=== PATIENT | male | born 1990 | race Caucasian/White ===

== ENCOUNTER 2017-02-15 16:00 | Emergency (ER) | payer MEDICAID, OTHER ==
[~2017-02-15] VITALS: Ht 175.3 cm; Wt 104.4 kg
[~2017-02-15 16:00] MED LIST: MOTRIN
[2017-02-15 16:50] VITALS: BP 147/89
--- NOTE | 2017-02-15 17:40 | NUR ---
AMBULATED TO ER BED 5
--- NOTE | 2017-02-15 17:43 | NUR ---
Patient being evaluated by physician at bedside.
--- NOTE | 2017-02-15 17:44 | NUR ---
26/m bib self c/o LOWER BACK PAIN TODAY. PAIN TO BACK FROM LEFT LOWER RADIATING ACROSS LOWER BACK. DENIES INCONTINENCE. AMBULATES WITH SLOW GUARDED GAIT. HX CHILDHOOD ASTHMA. NO S/S OF TRAUMA TO BACK.
[2017-02-15] MEDS ORDERED: KETOROLAC 60 MG/2 ML VIAL IM ONE (17:45)
[2017-02-15 18:14] VITALS: BP 140/88
== END 2017-02-15 18:14 | disposition home or self-care (01) ==
LOC: MED 16:00
DX: S33.5XXA Sprain of ligaments of lumbar spine, initial encounter (principal); R03.0 Elevated blood-pressure reading, without diagnosis of hypertension; J45.909 Unspecified asthma, uncomplicated; X58.XXXA Exposure to other specified factors, initial encounter; Y93.I9 Activity, other involving external motion; Y92.89 Other specified places as the place of occurrence of the external cause; Y99.8 Other external cause status
CPT/HCPCS: 96372; 99283; J1885

== ENCOUNTER 2017-08-09 08:08 | Emergency (ER) | payer OTHER ==
[~2017-08-09] VITALS: Ht 175.3 cm; Wt 102.3 kg
[2017-08-09 08:19] VITALS: BP 159/73
--- NOTE | 2017-08-09 08:27 | NUR ---
PT PLACED IN CHAIR C
--- NOTE | 2017-08-09 08:28 | NUR ---
PT COMES TO ER WITH C/O COUGH /CONGESTION X 5 DAYS, DENIES FEVERS/CHILLS. RESP EVEN AND UNLABORED-COARSE LS THROUGHOUT. PT REPORTS INTERMITTENT PRODUCTIVE COUGH-YELLOW PHLEGM, ALTHOUGH HERE IT IS DRY. PT IN NAD. DONALDSONLYNN FOR ER MD SALVADOR.
--- NOTE | 2017-08-09 08:30 | NUR ---
DR PARKS WITH PT
[2017-08-09] MEDS ORDERED: DEXAMETHASONE 10 MG/ML VIAL IM ONE (08:35)
[2017-08-09] MEDS ORDERED: ALBUTEROL SULFATE/IPRATROPIU 3 ML SOL IH ONE (08:35)
[2017-08-09] MEDS ORDERED: cefTRIAXone 1,000 MG in LIDOCAINE 1% ***ER ONLY *** 2.1 ML IM ONE (08:35)
[2017-08-09] MEDS ORDERED: LIDOCAINE MPF 1% - **ER/OR** 5 ML ONE (08:44)
[2017-08-09] MEDS ORDERED: cefTRIAXone 1,000 MG VIAL ONE (08:44)
--- NOTE | 2017-08-09 08:55 | NUR ---
pt stated production of dark muccos throughout prior week pt presnted with labored breathing tx tolerated
--- NOTE | 2017-08-09 09:02 | NUR ---
MEDICATED ORDERED, RT ALSO AT BEDSIDE FOR BREATHING TX
[2017-08-09 09:29] VITALS: BP 122/74
--- NOTE | 2017-08-09 09:30 | NUR ---
Patient discharged with v/s stable. Written and verbal after care instructions given and explained. Patient alert, oriented and verbalized understanding of instructions. Ambulatory with steady gait. All questions addressed prior to discharge. ID band removed. Patient advised to follow up with PMD. Rx of azithromycin,promethazine,albuterol,prdenisone given. Patient educated on indication of medication including possible reaction and side effects. Opportunity to ask questions provided and answered.
== END 2017-08-09 09:30 | disposition home or self-care (01) ==
LOC: MED 08:08
DX: J45.909 Unspecified asthma, uncomplicated (principal)
CPT/HCPCS: 94640; 96372; 99284; J0696; J1100; J2001; J7620